=== PATIENT | male | born 2000 | race Two or more races ===

== ENCOUNTER 2024-03-17 15:46 | Emergency (ER) | payer OTHER ==
[2024-03-17] MEDS: Cyclobenzaprine 10 MG Tab PO ONE (16:06)
[2024-03-17] MEDS: Ibuprofen 600 MG Tab PO ONE (16:06)
== END 2024-03-17 16:20 | disposition home or self-care (01) ==
LOC: MW.ED 15:46
DX: M54.50 Low back pain, unspecified (principal); Z75.8 Other problems related to medical facilities and other health care; Z79.899 Other long term (current) drug therapy; V49.49XA Driver injured in collision with other motor vehicles in traffic accident, initial encounter; Y93.89 Activity, other specified
CPT/HCPCS: 99283; A9270